=== PATIENT | male | born 1960 | race Caucasian/White ===

== ENCOUNTER 2024-01-19 13:33 | Outpatient (AMB) | payer MEDICARE, MEDICAID, SELFPAY ==
--- NOTE | 2024-01-19 13:33 | A.OFFVIS_ITS ---
Vital Signs 01/19/24 13:41 Height 5 ft 9 in Weight 200 lb BMI 29.5 BP 116/62 Blood Pressure Location Rt brachial Position Sitting Pulse 97 Pulse Source Doppler Pulse Oximetry (%) 94 Oxygen Delivery Method Room Air Intake Visit Reasons: copd Allergies dog dander [DOGS] Allergy (Unknown, Unverified 12/22/19 16:12) ITCHY,WATERY EYES lamotrigine [Lamictal] Allergy (Unknown, Verified 02/14/19 00:00) quetiapine [From SEROQUEL] Allergy (Unknown, Unverified 12/22/19 16:12) DROWSY ziprasidone [Geodon] Allergy (Unknown, Verified 02/14/19 00:00) From GEODON Allergy (Unknown, Uncoded 12/22/19 16:12) HEART SKIPS HPI HPI copd: Details: 63-year-old gentleman active 30+ pack-year smoker with underlying schizophrenia and likely underlying COPD referred to [facility] care. Patient has been using p.r.n. supplemental oxygen to maintain O2 saturation above 88%, also duo nebs and albuterol MDI. He denies any pulmonary related concerns or complaints. [facility] Social History (Updated 01/19/24 @ 13:40 by Basilia Estes Yee) Patient Tobacco Use Status: Current everyday Tobacco user Tobacco use type: Cigarette Cigarettes Per Day: 6 Years Smoked: started at age 12, 1 PPD Review of Systems Const Denies daytime sleepiness, Denies excessive sweating, Denies fatigue, Denies fever(s), Denies lethargy, Denies malaise, Denies night sweats, Denies snoring and Denies weight loss Eyes Denies blurry vision and Denies itchy eyes ENT Denies nasal congestion, Denies post nasal drip, Denies sinus pain, Denies sinus pressure and Denies other ( Thrush) Card Denies chest pain, Denies pedal edema, Denies dyspnea, Denies orthopnea and Denies paroxysmal nocturnal dyspnea Resp Denies cough, Denies hemoptysis, Denies excessive phlegm production, Denies dyspnea, Denies snoring and Denies wheezing GI Denies abdominal pain and Denies heartburn Musc Denies myalgias, Denies arthralgias and Denies joint swelling Skin/Breast Denies rash Neuro Denies memory loss and Denies seizure-like activity Psych Denies abnormal sleep pattern, Denies anxiety and Denies memory loss Endo Denies excessive sweating, Denies fatigue and Denies heat intolerance Chavez/Lymph Denies easy bruising Aller/Immun Denies itchy eyes, Denies seasonal rhinorrhea and Denies wheezing Physical Exam Vital Signs: Last Vital Signs Pulse 97 01/19/24 13:41 BP 116/62 01/19/24 13:41 Pulse Ox 94 01/19/24 13:41 Oxygen Delivery Method Room Air 01/19/24 13:41 BMI result Body Mass Index 29.5 Const General: no acute distress and alert Nutritional Appearance: not obese Orientation/consciousness: Other orientation findings ( oriented) HEENT Head: Yes atraumatic Eyes General: appearance normal, both eyes and all related structures Sclerae: sclerae normal EOM: EOMs intact bilaterally Neck Neck: Yes supple Lymphatic: no lymphadenopathy noted Resp Effort & Inspection: normal respiratory effort and no use of accessory muscles Auscultation: clear to auscultation bilaterally Cardio Rate: regular rate Rhythm: regular rhythm Heart sounds: no gallops, no murmurs and no rubs Skin General skin exam: other ( warm) Extrem General: No clubbing, No cyanosis and No edema Assessment & Plan Assessment & Plan (1) COPD (chronic obstructive pulmonary disease): Code(s): J44.9 - Chronic obstructive pulmonary disease, unspecified Category: Medical Plan: Likely underlying COPD of unclear severity. Will obtain full PFT. Will continue on current regimen of duo nebs and albuterol MDI. (2) Personal history of nicotine dependence: Code(s): Z87.891 - Personal history of nicotine dependence Category: Medical Plan: Will obtain CT lung cancer screening. Orders: Orders CT lung screening Today Z87.891 - Personal history of nicotine dependence PFT pulmonary function test Today J44.9 - Chronic obstructive pulmonary disease, unspecified Coding Level of Care Code New Pt Level 4 (75400) Diagnoses COPD (chronic obstructive pulmonary disease) J44.9 Personal history of nicotine dependence Z87.891
[2024-01-19 13:41] VITALS: BP 116/62; PULSE 97; O2SAT 94; BMI 29.5
== END 2024-01-19 14:04 | disposition home or self-care (01) ==
PROVIDERS: PCP Internal Medicine; Visit Provider Internal Medicine Pulmonary Disease
DX: J44.9 Chronic obstructive pulmonary disease, unspecified (principal); Z87.891 Personal history of nicotine dependence
CPT/HCPCS: 99204

== ENCOUNTER → 2024-01-19 13:33 | Outpatient (BNVA) | payer MEDICAID, SELFPAY | PROVIDERS: PCP Internal Medicine; Visit Provider Internal Medicine Pulmonary Disease | DX: J44.9 Chronic obstructive pulmonary disease, unspecified (principal); F17.210 Nicotine dependence, cigarettes, uncomplicated | CPT/HCPCS: 99202 ==

== ENCOUNTER 2024-02-24 14:14 | Outpatient (REF) | payer MEDICARE, MEDICAID, SELFPAY ==
[2024-02-24 11:49] VITALS: PULSE 90; O2SAT 91
--- NOTE | 2024-02-24 15:22 | PFT_ITS ---
Indication: COPD Spirometry [FEV1 to FVC 70%; FEV1 1.09 L; FVC 1.55 L. no significant response to bronchodilators noted.] Lung Volumes [The patient was not able to perform the maneuvers] Diffusion Capacity [The patient was not able to perform the maneuvers] Comparisons [None] Interpretation [This is a suboptimal study due to the fact the patient was not able to perform all the maneuvers. It appears that there is an obstructive ventilatory defect which is consistent with very severe COPD. No response to bronchodilators noted. Again lung volumes and diffusing capacity were able to be measured in the data available did not meet ATS criteria. Clinical correlation warranted.] MTDD
== END 2024-02-24 14:15 | disposition home or self-care (01) ==
LOC: HO.RESP 14:14
PROVIDERS: Visit Provider Hospitalist
DX: J44.9 Chronic obstructive pulmonary disease, unspecified (principal)
CPT/HCPCS: 94010; 94640; 94727; 94729

== ENCOUNTER → 2024-02-24 15:22 | Outpatient (BNV) | payer MEDICARE, MEDICAID, SELFPAY | PROVIDERS: Visit Provider Hospitalist | DX: J44.9 Chronic obstructive pulmonary disease, unspecified (principal) | CPT/HCPCS: 94060 ==